=== PATIENT | male | born 1995 | race Caucasian/White ===

== ENCOUNTER 2018-04-26 21:46 | Emergency (ER) | payer OTHER ==
[2018-04-26 21:58] VITALS: BP 142/87
== END 2018-04-26 22:33 | disposition left against medical advice (07) ==
LOC: ED 21:46
DX: J02.9 Acute pharyngitis, unspecified (principal); Z53.21 Procedure and treatment not carried out due to patient leaving prior to being seen by health care provider

== ENCOUNTER 2018-12-07 01:40 | Emergency (ER) | payer SELFPAY ==
[2018-12-07 02:09] LABS: Rapid Strep Molecular Negative (Negative)
[2018-12-07 02:18] LABS: Influenza A Molecular NEGATIVE (Negative); Influenza B Molecular NEGATIVE (Negative)
[2018-12-07] MEDS ORDERED: Lactated Ringers 1000 ML Bag* 1,000 ML IV ONE ×2 (02:27→04:26)
[2018-12-07] MEDS ORDERED: Ketorolac INJ* 30 MG/ML 1 ML VIAL IV PUSH ONE (02:27)
[2018-12-07] MEDS ORDERED: Metoclopramide IV* 5 MG/ML 2 ML VIAL IV SLOW PU ONE (02:28)
[2018-12-07] MEDS ORDERED: Magnesium Sulfate 2 GM IV* 2 GM/50 ML BAG IVPB ONE (02:28)
--- NOTE | 2018-12-07 02:47 | ED ---
Complex/Multi-Sys Presentation - HPI Summary HPI Summary: Patient is a 23 y/o M presenting to [facility] with complaints of fever, CASTRO, cough, congestion, sore throat, SOB. Patient reports that he had Sx 12/05/18 and was evaluated at . [place], strep, and flu tests were negative. He states that he awoke 12/07/18 at around 0130 feeling feverish and measured temp to be 103.4 F. Patient also states that he also had an episode of hyperventilation and difficulty breathing which lasted around ten minutes. Patient took Tylenol 500 mg at 0130. He reports improvement in Sx with this medication. In room, temp is 101.5 F. Neck pain and stiffness are denied. FMHx of blood clots is denied. No recent travel or immobilization in the past few days. No Hx of HTN, diabetes, asthma noted. No tobacco usage reported, last marijuana usage was last week, occasional alcohol consumption noted. On triage, pain is rated 6/10, nothing is noted to aggravate/alleviate Sx. Home medications and allergies are reviewed. - History Of Current Complaint Chief Complaint: EDFever Time Seen by Provider: 12/07/18 02:27 Hx Obtained From: Patient Onset/Duration: Lasting Days, Still Present, Worse Since Timing: Constant Severity Currently: Moderate Location: Pain At: - head Aggravating Factor(s): nothing Alleviating Factor(s): nothing Associated Signs And Symptoms: Positive: Headache, SOB, Cough, Fever, Other - positive - sore throat, congestion; negative - neck pain and stiffness - Allergies/Home Medications Allergies/Adverse Reactions: Allergies Allergy/AdvReac Type Severity Reaction Status Date / Time No Known Allergies Allergy Verified 04/26/18 21:58 Home Medications: Home Medications NK [No Home Medications Reported] 12/07/18 [History Confirmed 12/07/18] PMH/Surg Hx/FS Hx/Imm Hx Sensory History: Denies: Hx Legally Blind, Hx Deafness Opthamlomology History: Denies: Hx Legally Blind EENT History: Denies: Hx Deafness Infectious Disease History: No Infectious Disease History: Denies: Traveled Outside the [place] in Last 30 Days - Family History Known Family History: Positive: Blood Disorder - FMHx of blood clots is denied - Social History Alcohol Use: None Substance Use Type: Reports: None Smoking Status (MU): Never Smoked Tobacco Review of Systems Positive: Fever ENT: Other - positive - congestion Positive: Sore Throat Positive: Shortness Of Breath, Cough Musculoskeletal: Other - negative - neck pain and stiffness Positive: Headache All Other Systems Reviewed And Are Negative: Yes Physical Exam - Summary Physical Exam Summary: Constitutional: Well-developed, Well-nourished, Alert. (-) Distressed Skin: Warm, Dry HENT: Normocephalic; Atraumatic; 1+ tonsilar edema, tonsils symmetric, posterior pharyngeal erythema, some petechiae, no exudates. Eyes: Conjunctiva normal Neck: Musculoskeletal ROM normal neck. (-) JVD, (-) Stridor, (-) Tracheal deviation Cardio: Tachycardia. Heart sounds normal; Intact distal pulses; The pedal pulses are 2+ and symmetric. Radial pulses are 2+ and symmetric. Pulmonary/Chest wall: Effort normal. (-) Respiratory distress, (-) Wheezes, (-) Rales Abd: Soft, (-) tenderness, (-) Distension, (-) Guarding, (-) Rebound Musculoskeletal: (-) Edema Neuro: Alert, Oriented x3; no meningismus. Psych: Mood and affect Normal Triage Information Reviewed: Yes Vital Signs On Initial Exam: Initial Vitals Temp Pulse Resp BP Pulse Ox 100.1 F 117 22 158/91 98 12/07/18 01:41 12/07/18 01:41 12/07/18 01:41 12/07/18 01:41 12/07/18 01:41 Vital Signs Reviewed: Yes Procedures - Procedure Summary Procedure Summary: L3-L4 LP was done. Lidocaine 1% was used for local anesthesia. Patient was in sitting position. Single pass with 22 gauge needle done, 4 tubes of clear spinal fluid were collected. - Sedation Patient Received Moderate/Deep Sedation with Procedure: No - Lumbar Puncture L3-L4 Position: Sitting Aseptic Technique: Lidocaine Anesthesia Used: 1.0% Lido Spinal Needle Used: 22 Gauge Lumbar Puncture Note: Single pass, 4 tubes of clear spinal fluid were obtained. Diagnostics - Vital Signs Vital Signs Temp Pulse Resp BP Pulse Ox 12/07/18 01:41 100.1 F 117 22 158/91 98 - Laboratory Lab Results: Lab Results 12/07/18 12/07/18 Range/Units 01:44 01:44 Influenza A (Rapid) Negative (Negative) Influenza B (Rapid) Negative (Negative) Group A Strep Rapid Negative (Negative) Result Diagrams: 12/07/18 03:12 12/07/18 03:12 Lab Statement: Any lab studies that have been ordered have been reviewed, and results considered in the medical decision making process. Re-Evaluation - Re-Evaluation First Eval Re-Evaluation Time: 07:27 Comment: CTA is negative. Heart rate is in the 80s and he is afebrile. Complex Multi-Symp Course/Dx Course Of Treatment: Patient is a 23 y/o M presenting to [facility] with complaints of fever, CASTRO, cough, congestion, sore throat, SOB. Patient reports that he had Sx 12/05/18 and was evaluated at . [place], strep, and flu tests were negative. He states that he awoke 12/07/18 at around 0130 feeling feverish and measured temp to be 103.4 F. Patient also states that he also had an episode of hyperventilation and difficulty breathing which lasted around ten minutes. Patient took Tylenol 500 mg at 0130. He reports improvement in Sx with this medication. In room, temp is 101.5 F. Neck pain and stiffness are denied. FMHx of blood clots is denied. No recent travel or immobilization in the past few days. No Hx of HTN, diabetes, asthma noted. No tobacco usage reported, last marijuana usage was last week, occasional alcohol consumption noted. On physical exam, 1+ tonsilar edema, tonsils symmetric, posterior pharyngeal erythema, some petechiae, no exudates. No meningismus is noted. Influenza and strep tests were negative. Bloodwork WNL with exception of Hgb 13.5, Hct 39, MPV 7.3, absolute lymphs 0.5, glucose 115. L3-L4 LP was done. Lidocaine 1% was used for local anesthesia. Patient was in sitting position. Single pass with 22 gauge needle done, 4 tubes of clear spinal fluid were collected. CSF analysis was WNL. During ED course, patient received reglan 10 mg, magnesium sulfate 2 gm in 50 mls @ 50 mls/hr IVPB, lactated ringers 2 L, and Tylenol 975 mg PO. Patient re-check temp was 100.4 F. He is somewhat tachycardic. CTA chest/thorax to be obtained. Patient is signed out to Dr. Goodwin at 0700 12/07/18 shift change pending CTA chest/thorax results. - Diagnoses Provider Diagnoses: Viral syndrome Discharge ED - Sign-Out/Discharge Documenting (check all that apply): Sign-Out Patient Signing out patient TO: Richard Goodwin - Discharge Plan Condition: Stable Disposition: HOME Patient Education Materials: Viral Syndrome (ED) Forms: *School Release Referrals: [facility] [Outside] No Primary Care Phys,NOPCP [Primary Care Provider] - Additional Instructions: You were seen in the emergency department for a headache, fever and viral syndrome. Your CT of your chest adduction of blood clots, your labs did not suggest meningitis. If any studies were not completed at the time of discharge you will be called with the relevant results. Please follow up with your primary care doctor in next 2-3 days and return to emergency department for worsening headaches, fevers, trouble breathing, inability to eat or drink or concerning symptoms. It was a pleasure taking care of you today. - Billing Disposition and Condition Condition: STABLE Disposition: Home - Attestation Statements Document Initiated by Shanique: Yes Documenting Scribe: VINCE ADAMS Provider For Whom Shanique is Documenting (Include Credential): EDUARDO BLOOM MD Scribe Attestation: I, VINCE ADAMS, jyotiibed for EDUARDO BLOOM MD on 12/07/18 at 0734. Scribe Documentation Reviewed: Yes Provider Attestation: The documentation as recorded by the VINCE montes accurately reflects the service I personally performed and the decisions made by me, EDUARDO BLOOM MD Status of Scribe Document: Viewed
[2018-12-07 03:19] LABS: ABS Lymphocytes 0.5 10^3/ul (1.0-4.8); ABS Monocytes 0.8 10^3/ul (0-0.8); ABS Neutrophils 4.7 10^3/ul (1.5-7.7); Eosinophil % 0.2 %; Hematocrit 39 % (42-52); Hemoglobin 13.5 g/dL (14.0-18.0); Lymphocyte % 8.1 %; Mean Corpuscular HGB Conc 35 g/dL (31-36); Mean Corpuscular Hemoglobin 31 pg (27-31); Mean Corpuscular Volume 87 fL (80-94); Mean Platelet Volume 7.3 fL (7.4-10.4); Nucleated Red Blood Cells % 0.1; Platelet Count 157 10^3/uL (150-450); Red Blood Count 4.42 10^6 /uL (4.18-5.48); Red Cell Distribution Width 13 % (10-15)
[2018-12-07 03:35] LABS: Albumin/Globulin Ratio 1.5 (1-3); BUN/Creatinine Ratio 12.6 (8-20); Calcium 8.8 mg/dL (8.6-10.3); EGFR African American 121.1 (>60); EGFR Non-African American 100.1 (>60); Globulin 2.7 g/dL (2-4); Magnesium 1.9 mg/dL (1.9-2.7); Total Bilirubin 0.5 mg/dL (0.2-1.0); Total Protein 6.7 g/dL (6.4-8.9)
[2018-12-07 03:47] LABS: Body Fluid Source Cerebral Spinal
[2018-12-07 03:56] LABS: Indirect Bilirubin 0.4 mg/dL (0.3-1.0); Potassium 3.5 mmol/L (3.5-5.0)
[2018-12-07 04:04] LABS: CSF Glucose 73 mg/dL (40-70)
[2018-12-07] MEDS ORDERED: Acetaminophen TAB* 325 MG PO ONE (04:38)
[2018-12-07] MEDS ORDERED: Iohexol 350* (CONTRAST) 500 ML MDV IV ONE (06:18)
--- NOTE | 2018-12-07 07:09 | ED ---
Progress - Progress Note Progress Note: This pt was signed out from Dr. Solorzano awaiting CTA chest and pending disposition. CTA chest, as read by radiologist IMPRESSION: 1. No pulmonary embolus. 2. Soft tissue density in the anterior mediastinum suggesting residual thymic tissue. Dr. Goodwin has reviewed this report. Re-Evaluation - Re-Evaluation First Eval Re-Evaluation Time: 07:27 Comment: CTA is negative. Heart rate is in the 80s and he is afebrile. Course/Dx - Course Course Of Treatment: This pt was signed out by Dr. Solorzano pending CTA chest. - Diagnoses Provider Diagnoses: Viral syndrome Discharge ED - Sign-Out/Discharge Documenting (check all that apply): Patient Departure - Discharge home, Receiving Sign-Out Receiving patient FROM: Hunter Solorzano - Discharge Plan Condition: Stable Disposition: HOME Patient Education Materials: Viral Syndrome (ED) Forms: *School Release Referrals: [facility] [Outside] No Primary Care Phys,NOPCP [Primary Care Provider] - Additional Instructions: You were seen in the emergency department for a headache, fever and viral syndrome. Your CT of your chest adduction of blood clots, your labs did not suggest meningitis. If any studies were not completed at the time of discharge you will be called with the relevant results. Please follow up with your primary care doctor in next 2-3 days and return to emergency department for worsening headaches, fevers, trouble breathing, inability to eat or drink or concerning symptoms. It was a pleasure taking care of you today. - Billing Disposition and Condition Condition: STABLE Disposition: Home - Attestation Statements Document Initiated by Shanique: Yes Documenting Brianibe: Susie Harrington Provider For Whom Shanique is Documenting (Include Credential): Richard Goodwin MD Scribe Attestation: I, Susie Harrington, scribed for Richard Goodwin MD on 12/07/18 at 0743. Scribe Documentation Reviewed: Yes Provider Attestation: The documentation as recorded by the Susie montes accurately reflects the service I personally performed and the decisions made by me, Richard Goodwin MD Status of Scribe Document: Viewed
[2018-12-07 07:27] VITALS: BP 132/68
[2018-12-08 19:49] LABS: HSV 1 PCR, CSF Negative (Negative); HSV 2 PCR, CSF Negative (Negative)
[2018-12-09 22:51] LABS: CSF West Nile Virus RNA (PCR) Negative (Negative); West Nile Virus Source CSF
[2018-12-13 16:01] LABS: CSF West Nile Virus IgG Ab Negative (Negative); CSF West Nile Virus IgM Ab Negative (Negative)
== END 2018-12-07 07:40 | disposition home or self-care (01) ==
LOC: ED 01:40
DX: B34.9 Viral infection, unspecified (principal)
CPT/HCPCS: 36415; 62270; 71275; 80048; 80076; 82945; 83690; 83735; 84157; 85025; 86618; 86788; 86789; 87070; 87205; 87529; 87651; 87798; 89051; 96361; 96365; 96375; 99283; A9270-GY; J2765; J3475; Q9967

== ENCOUNTER 2018-12-08 20:39 | Emergency (ER) | payer SELFPAY ==
[2018-12-08] MEDS ORDERED: LORazepam TAB(*) 1 MG PO ONE (22:06)
--- NOTE | 2018-12-08 22:07 | ED ---
Back Pain - HPI Summary HPI Summary: This patient is a 23 year old male presenting to [facility] with a chief complaint of low back pain S/P lumbar puncture done at [facility] yesterday morning. He states the pain has gotten progressively worse. He states he took Tylenol at 1630. He reports a minor headache. He rates his pain 6/10 in severity. He states it mostly hurts when he moves. - History of Current Complaint Chief Complaint: EDBackInjuryPain Stated Complaint: LOWER BACK PAIN Hx Obtained From: Patient Onset/Duration: Lasting Days Pain Intensity: 6 Pain Scale Used: 0-10 Numeric - Allergies/Home Medications Allergies/Adverse Reactions: Allergies Allergy/AdvReac Type Severity Reaction Status Date / Time No Known Allergies Allergy Verified 12/10/18 12:55 PMH/Surg Hx/FS Hx/Imm Hx Endocrine/Hematology History: Denies: Hx Diabetes Cardiovascular History: Denies: Hx Hypertension History: Denies: Hx Renal Disease Sensory History: Denies: Hx Legally Blind, Hx Deafness Opthamlomology History: Denies: Hx Legally Blind Infectious Disease History: No Infectious Disease History: Denies: Traveled Outside the [place] in Last 30 Days - Family History Known Family History: Positive: Blood Disorder - FMHx of blood clots is denied - Social History Alcohol Use: None Substance Use Type: Reports: None Smoking Status (MU): Never Smoked Tobacco Review of Systems Negative: Fever Positive: Other - Back pain Positive: Headache All Other Systems Reviewed And Are Negative: Yes Physical Exam - Summary Physical Exam Summary: Appearance: Well-appearing, Well-nourished, lying in bed comfortable Skin: Warm, dry, no obvious rash Eyes: sclera anicteric, no conjunctival pallor ENT: mucous membranes moist Neck: deferred Respiratory: No signs of respiratory distress Cardiovascular: Appears well perfused, pulses are nml Abdomen: deferred Musculoskeletal: Moving all 4 extremities without obvious discomfort. Paravertebral tenderness at the lumbar spine. At the site of the lumbar puncture there is minimal induration, but no swelling or focal tenderness. Neurological: Awake and alert, mentation is normal, speech is fluent and appropriate Psychiatric: affect is normal, does not appear anxious or depressed Triage Information Reviewed: Yes Vital Signs On Initial Exam: Initial Vitals Temp Pulse Resp BP Pulse Ox 97.9 F 89 18 136/78 99 12/08/18 20:40 12/08/18 20:40 12/08/18 20:40 12/08/18 20:40 12/08/18 20:40 Vital Signs Reviewed: Yes Procedures - Sedation Patient Received Moderate/Deep Sedation with Procedure: No Diagnostics - Vital Signs Vital Signs Temp Pulse Resp BP Pulse Ox 12/08/18 20:40 97.9 F 89 18 136/78 99 - Laboratory Lab Statement: Any lab studies that have been ordered have been reviewed, and results considered in the medical decision making process. Back Pain Course/Dx - Course Course Of Treatment: This patient is a 23 year old male presenting to [facility] with a chief complaint of low back pain S/P lumbar puncture done at [facility] yesterday morning. The pain was likely due to positioning during the procedure. Patient will be prescribed Ativan to manage his pain and given one does in the ED. A plan for discharge was discussed with the patient and he was agreeable with this plan. - Diagnoses Provider Diagnoses: Acute back pain Discharge ED - Sign-Out/Discharge Documenting (check all that apply): Patient Departure - Discharge - Discharge Plan Condition: Stable Disposition: HOME Prescriptions: LORazepam TAB(*) [Ativan 0.5 MG TAB (*)] 0.5 mg PO Q6H PRN #12 tab MDD 3 PRN Reason: Spasms - Back Patient Education Materials: Acute Low Back Pain (ED) Referrals: [facility] [Primary Care Provider] - 3 Days (if not improving) Additional Instructions: It looks like the pain is coming from the muscles that support the spine and may be related to the positioning you had to assume during the procedure. There is no focal swelling, tenderness or other signs of a complication at the site of the puncture itself. You can continue taking OTC pain medication and I have also prescribed some low dose ativan to help with the spasm. It should start improving over the weekend. - Billing Disposition and Condition Condition: STABLE Disposition: Home - Attestation Statements Document Initiated by Shanique: Yes Documenting Scribe: Catrachito Solano Provider For Whom Shanique is Documenting (Include Credential): Rashid Auguste MD Scribricardo Attestation: Catrachito Houston scribed for Rashid Auguste MD on 12/13/18 at 1752. Scribe Documentation Reviewed: Yes Provider Attestation: The documentation as recorded by the Catrachito montes accurately reflects the service I personally performed and the decisions made by me, Rashid Auguste MD Status of Scribe Document: Viewed
[2018-12-08 22:17] VITALS: BP 115/67
== END 2018-12-08 22:16 | disposition home or self-care (01) ==
LOC: ED 20:39
DX: M54.5 Low back pain (principal)
CPT/HCPCS: 99282; A9270-GY

== ENCOUNTER 2018-12-10 12:49 | Emergency (ER) | payer SELFPAY ==
[2018-12-10] MEDS ORDERED: NS 0.9% 1000 ML** 1,000 ML IV ONE (13:57)
--- NOTE | 2018-12-10 14:11 | ED ---
Headache - HPI Summary HPI Summary: This pt is a 23 Y/O M presenting to [facility] accompanied by his father with a CC of a headache that occurred after an LP he had on 12/07/18 in the AM. He states that the headache is only present when he is either standing or sitting up and with movements. He states that the pain is rated an 8/10 In severity. He states that he has nausea during the headaches and has had occurrences of vomiting. The pt states that while he is lying down his symptoms are not present. He denies any fevers, chills, abdominal pains, and neck stiffness. He has no pertinent PMHx and FHx. - History Of Current Complaint Chief Complaint: EDHeadache Stated Complaint: SEVERE HEADACHE PER PT Time Seen by Provider: 12/10/18 13:57 Hx Obtained From: Patient, Family/Natural Resources Instructor - father Last Known Well Date: 12/07/18 Onset/Duration: Gradual Onset, Still Present, Worse Since - onset Initially Headache Was: Mild Currently Pain Is: Current Pain Scale(0-10)= - 8/10, Severe Timing: Constant Location of Headache: Diffuse Aggravating Factor: Position Change - standing/sitting up, Other - movement Allevating Factors: Nothing Associated Signs And Symptoms: Negative - fevers, chills, abdominal pains, and neck stiffness., Nausea, Vomiting - Allergies/Home Medications Allergies/Adverse Reactions: Allergies Allergy/AdvReac Type Severity Reaction Status Date / Time No Known Allergies Allergy Verified 12/10/18 12:55 PMH/Surg Hx/FS Hx/Imm Hx Previously Healthy: Yes Endocrine/Hematology History: Denies: Hx Diabetes Cardiovascular History: Denies: Hx Hypertension History: Denies: Hx Renal Disease Sensory History: Denies: Hx Legally Blind, Hx Deafness Opthamlomology History: Denies: Hx Legally Blind Infectious Disease History: No Infectious Disease History: Denies: Traveled Outside the [place] in Last 30 Days - Family History Known Family History: Positive: Blood Disorder - FMHx of blood clots is denied - Social History Alcohol Use: None Substance Use Type: Reports: None Smoking Status (MU): Never Smoked Tobacco Review of Systems Negative: Fever, Chills ENT: Negative - neck stiffness Positive: Vomiting, Nausea. Negative: Abdominal Pain Positive: Headache - after LP, diffuse All Other Systems Reviewed And Are Negative: Yes Physical Exam - Summary Physical Exam Summary: Constitutional: Well-developed, Well-nourished, Alert. (-) Distressed Skin: Warm, Dry, two punctate scabs to L3-L4 HENT: Normocephalic; Atraumatic Eyes: Conjunctiva normal Neck: Musculoskeletal ROM normal neck. (-) JVD, (-) Stridor, (-) Nuchal rigidity Cardio: Rhythm regular, rate normal, Heart sounds normal; Intact distal pulses; Radial pulses are 2+ and symmetric. (-) Murmur Pulmonary/Chest wall: Effort normal. (-) Respiratory distress, (-) Wheezes, (-) Rales Abd: Soft, (-) tenderness, (-) Distension, (-) Guarding, (-) Rebound Musculoskeletal: (-) Edema Neuro: Alert, Oriented x3 Psych: Mood and affect Normal Triage Information Reviewed: Yes Vital Signs On Initial Exam: Initial Vitals Temp Pulse Resp BP Pulse Ox 97.8 F 73 16 123/88 99 12/10/18 12:50 12/10/18 12:50 12/10/18 12:50 12/10/18 12:50 12/10/18 12:50 Vital Signs Reviewed: Yes Procedures - Sedation Patient Received Moderate/Deep Sedation with Procedure: No Diagnostics - Vital Signs Vital Signs Temp Pulse Resp BP Pulse Ox 12/10/18 12:50 97.8 F 73 16 123/88 99 - Laboratory Lab Statement: Any lab studies that have been ordered have been reviewed, and results considered in the medical decision making process. Re-Evaluation - Re-Evaluation First Eval Re-Evaluation Time: 14:22 Change: Unchanged Comment: Pt is agreeable to the plan and will return to the OR office tomorrow to receive a blood patch. He will go to admissions for same day surgery at 0930 for treatment. He is NPO at 0600 tomorrow morning. Headache Course/Dx - Course Course Of Treatment: 31-year-old male w recent LP presents with post-LP headache. Physical exam well-appearing, no fevers. This patient's second presentation for headache. Discussed with on-call anesthesia, plan for blood patch tomorrow a.m. Patient given fluids and Tylenol for analgesia. - Diagnoses Provider Diagnoses: Headache, post-lumbar puncture - Physician Notifications Discussed Care Of Patient With: Donna Dobbins Time Discussed With Above Provider: 14:15 Instructed by Provider To: Have Pt Call For Appt. - Dr. Dobbins, anesthesiologist , was consulted at [address] a [address] patch[address] Dr. Dobbins stated that the pt would be scheduled for an appoinment tomorrow and be given a blood patch. Discharge ED - Sign-Out/Discharge Documenting (check all that apply): Patient Departure - discharge - Discharge Plan Condition: Stable Disposition: HOME Patient Education Materials: Acute Headache (ED) Referrals: [facility] [Primary Care Provider] - Additional Instructions: You were seen in the ER for post LP headache. We spoke with our on-call anesthesiologist, who recommends he go to the admissions desk for one day surgery tomorrow at 9:30 AM in preparation for a blood patch around 11 AM. She recommends that you do not have any solid foods only water or liquids after 6 AM. Please return if you have worsening headache, vomiting, and inability to tolerate by mouth, or are concerned. - Billing Disposition and Condition Condition: STABLE Disposition: Home - Attestation Statements Document Initiated by Shanique: Yes Documenting Scribe: Adonis Wilkins Provider For Whom Shanique is Documenting (Include Credential): Richard Goodwin MD Scribe Attestation: I, Adonis Wilkins, scribed for Richard Goodwin MD on 12/10/18 at 1456. Scribe Documentation Reviewed: Yes Provider Attestation: The documentation as recorded by the Adonis montes accurately reflects the service I personally performed and the decisions made by , Richard Goodwin MD Status of Scribe Document: Viewed
[2018-12-10] MEDS ORDERED: Ondansetron INJ* 2 MG/ML VIAL IV ONE (14:13)
[2018-12-10] MEDS ORDERED: Ketorolac INJ* 30 MG/ML 1 ML VIAL IV ONE (14:13)
[2018-12-10] MEDS ORDERED: Acetaminophen TAB* 325 MG PO ONE (14:23)
[2018-12-10 15:24] VITALS: BP 116/74
== END 2018-12-10 15:00 | disposition home or self-care (01) ==
LOC: ED 12:49
DX: R51 Headache (principal); G97.1 Other reaction to spinal and lumbar puncture; Y84.4 Aspiration of fluid as the cause of abnormal reaction of the patient, or of later complication, without mention of misadventure at the time of the procedure; Y92.9 Unspecified place or not applicable
CPT/HCPCS: 99282

== ENCOUNTER → 2018-12-11 | Day surgery (SDC) | payer SELFPAY | END | disposition home or self-care (01) | LOC: OR 09:25 | PROVIDERS: ATTEND Anesthesiology | DX: G97.1 Other reaction to spinal and lumbar puncture (principal) | CPT/HCPCS: 62273 ==